=== PATIENT | male | born 1975 | race Two or more races ===

== ENCOUNTER 2025-02-24 20:03 | Emergency (ER) | payer OTHER ==
[~2025-02-24] VITALS: Ht 167.6 cm; Wt 72.6 kg
[2025-02-24] MEDS ORDERED: CLONIDINE HCL 0.1 MG TABLET ONE (22:06)
[2025-02-24] MEDS: CLONIDINE HCL 0.1 MG TABLET PO ONE (22:10)
[2025-02-24 22:30] VITALS: BP 141/80; O2SAT 98
== END 2025-02-24 22:48 ==
LOC: ER 20:07
DX: I10 Essential (primary) hypertension (principal); E11.9 Type 2 diabetes mellitus without complications; Z89.512 Acquired absence of left leg below knee